=== PATIENT | female | born 1955 | race Caucasian/White ===

== ENCOUNTER 2021-06-24 06:01 | Day surgery (SDC) | payer OTHER ==
[2021-06-20 10:28] LABS: Absolute Lymphocytes (CBC) 1.4 K/uL (0.7-4.9); Basophils % 0.7 % (0-1.3); Hematocrit 41.3 % (36.0-45.0); Lymphocytes % 33.7 % (15.3-44.8); MPV 10.5 fL (7.6-11.3); RBC Red Blood Cell Count 4.84 M/uL (3.86-4.86)
--- NOTE | 2021-06-20 10:35 | RAD REPORT ---
EXAM DESCRIPTION: RAD - Chest Pa And Lat (2 Views) - 06/20/2021 10:17 am CLINICAL HISTORY: Pre Op pending shoulder surgery COMPARISON: None TECHNIQUE: Frontal and lateral views of the chest were obtained. FINDINGS: The lungs are clear. Heart size is normal and central vasculature is within normal limit s. No pleural effusion or pneumothorax seen. No acute bone finding. Right convex lower thoracic sco liotic curvature present. Prior lower cervical fusion changes present with hardware in place. No aort ic abnormality. IMPRESSION: No acute cardiopulmonary process.
[2021-06-20 10:57] LABS: Protime INR 0.95
[2021-06-24] MEDS ORDERED: CEFAZOLIN/NS 1gm 1 GM/50 ML BAG ONE (06:12)
[2021-06-24] MEDS ORDERED: Ringers Lactate 1,000 ML IV ONE ×2 (06:12→08:56)
[2021-06-24] MEDS ORDERED: EPINEPHRINE/PF 1 MG/ML AMP ONE (06:32)
[2021-06-24] MEDS ORDERED: NS 0.9% VIAL 10 ML ONE (06:42)
[2021-06-24] MEDS ORDERED: LIDOCAINE 1% MPF 5 ML VIAL ONE (06:42)
[2021-06-24] MEDS ORDERED: MIDAZOLAM HCL 2 MG/2 ML INJ ONE (06:43)
[2021-06-24] MEDS ORDERED: FENTANYL CITR 100 MCG/2 ML ONE (06:43)
[2021-06-24] MEDS ORDERED: ROPLVACAINE HCL 40 ML ONE (06:43)
[2021-06-24] MEDS ORDERED: dexAMETHasone 10 MG/ML VIAL ONE ×2 (06:43→07:15)
[2021-06-24] MEDS ORDERED: propofoL 200 MG/20 ML VIAL IV ONE (07:15)
[2021-06-24] MEDS ORDERED: KETOROLAC 30 MG/ML INJ ONE (07:15)
[2021-06-24] MEDS ORDERED: ROCURONIUM 50 MG/5 ML VIAL IV ONE (07:16)
[2021-06-24] MEDS ORDERED: LIDOCAINE 2% MPF 5 ML VIAL ONE (07:16)
[2021-06-24] MEDS ORDERED: ONDANSETRON 4 MG/2 ML VIAL ONE (07:16)
[2021-06-24] MEDS ORDERED: EPHEDRINE SULF 50 MG/ML VIAL ONE (07:58)
--- NOTE | 2021-06-24 10:05 | P.BOP ---
Preoperative diagnosis: left shoulder rotator cuff tear, impingement syndrome, biceps tendinitis Postoperative diagnosis: same Primary procedure: left shoulder arthroscopic rotator cuff repair Secondary procedure: left shoulder arthroscopic biceps tenotomy with SLAP debridement Other procedure(s): left shoulder arthroscopic subacromial decompression Estimated blood loss: 5 cc Specimen: none Findings: see dictation Anesthesia: General Complications: None Implants: 1- 5.5 mm Arthrex corkscrew, 2 - 4.75 mm Arthrex Swivelock Fluids & blood products: per anesthesia record Transferred to: Recovery Room Condition: Good
--- NOTE | 2021-06-24 11:06 | RAD REPORT ---
EXAM DESCRIPTION: RAD - Shoulder 1 View - 06/24/2021 10:47 am CLINICAL HISTORY: s/p left RCR Postoperative shoulder COMPARISON: Shoulder Left Wo Cont dated 04/12/2021 FINDINGS: Single projection of the left shoulder submitted postoperatively. Mild AC joint and glenoh umeral joint arthritic changes. No fracture or dislocation seen.
[2021-06-24] MEDS ORDERED: HYDROCODONE/APAP 7.5/325 MG TAB ONE (11:12)
[2021-06-24 11:55] VITALS: BP 130/65; TEMP 97; O2SAT 97
--- NOTE | 2021-06-24 21:41 | OP ---
Date of Procedure: 06/24/2021 Surgeon: Tao Gilmore MD Preoperative Diagnoses: 1. Left shoulder rotator cuff tear. 2. Left shoulder bicipital tenosynovitis. 3. Left shoulder impingement syndrome. Postoperative Diagnoses: 1. Left shoulder rotator cuff tear. 2. Left shoulder bicipital tenosynovitis. 3. Left shoulder impingement syndrome. 4. Left shoulder SLAP tear. Procedure Performed: 1. Left shoulder arthroscopic rotator cuff repair. 2. Left shoulder arthroscopic biceps tenotomy with SLAP tear debridement. 3. Left shoulder arthroscopic subacromial decompression. Anesthesia: General endotracheal. Fluids: As per anesthesia record. Estimated Blood Loss: Less than 5 cc. Complications: None. Implants: 1. one 5.5 mm Arthrex Corkscrew .. 2. Two 4.75 mm Arthrex SwiveLock. Indication For Procedure: Jo Ann is a 65-year-old female who presented to my clinic with MRI findings consistent with left shoulder rotator cuff tear and bicipital tenosynovitis. I discussed with the patient at length risks and benefits associated with operative and nonoperative treatment. She expressed understanding and elected to proceed with operative treatment. Description Of Procedure: After informed consent was obtained, the patient was identified in the preoperative holding area and the left upper extremity was marked. The patient was then brought back to the PACU and underwent an interscalene block to the left upper extremity performed by Anesthesia. The patient was then brought back to the operating room, transferred to the operating table in supine fashion and placed under general endotracheal anesthesia. She was then placed in the beach chair position with her extremities well padded. The left upper extremity was then prepped and draped in usual sterile fashion. A time-out was initiated. The correct patient and procedure were confirmed and identified. The patient did receive her preoperative prophylactic antibiotics. Attention was first paid to the posterior portal. A spinal needle was introduced into glenohumeral joint from the posterior portal position and the shoulder was injected with 30 cc of normal saline to distend the capsule. A stab incision was made posteriorly with an 11 blade to create a posterior portal. The arthroscope was brought in via the posterior portal position into the glenohumeral joint. Under direct visualization the anterior portal and cannula were placed. Next, diagnostic arthroscopy was performed. The patient was noted to have a broad-based biceps tendon anchor with significant tenosynovitis. A meniscal biter was then used to performed biceps tenotomy. The biceps anchor and labrum were then debrided using the Arthrex arthroscopic shaver. There was noted to be significant fraying of the superior labrum consistent with a SLAP tear. This was debrided using the arthroscopic shaver. There was no significant instability or anterior labral tear noted. Subscapularis did have a small tear on the superior portion which was debrided with arthroscopic shaver. The posterior lip was found to be intact. There was no loose bodies noted within the axillary pouch. Next, there was noted to be a full-thickness tear of the anterior edge of the supraspinatus. A lateral portal was created using a spinal needle. The peeler operator was then brought into the glenohumeral joint consistent with a full-thickness tear. Arthroscopic shaver was then brought in via the lateral portal and the undersurface of the rotator cuff tear was debrided using the arthroscopic shaver and the greater tuberosity supraspinatus footprint was debrided using arthroscopic shaver to create a bleeding bony bed. Arthroscope scope was then brought into the subacromial space and subacromial bursectomy was performed. The rotator cuff tear could be reduced to greater tuberosity. A spinal needle was then used to make stab incision just lateral to the acromion for placement of the medial corkscrew anchor. A 5.5 mm corkscrew anchor was then placed just lateral to the articular surface within the greater tuberosity. It was a double loaded anchor, the suture was then passed through the supraspinatus tear in anterior to posterior fashion. They were tied in a horizontal mattress fashion. There was good overall reduction of the rotator cuff tear up to the greater tuberosity. The suture limbs were then placed in a crisscross fashion, and 2 SwiveLock lateral row anchors were placed to increased surface area of the repair site up to the greater tuberosity. The central suture within the SwiveLock was then used to tied to reduced any dog-ears were noted both anteriorly and posteriorly. There was good overall reduction of the rotator cuff tear up to the greater tuberosity. Next, attention was taken to the subacromial decompression. The patient does have a grade 4 acromial ligament and undersurface of the acromion was debrided using the arthroscopic radiofrequency ablator as well as acromioplasty was performed using arthroscopic bur. Arthroscopic instruments were then removed without complication. Wounds were then irrigated thoroughly with normal saline. The skin was approximated using 2-0 Vicryl and further approximated using a 3-0 Monocryl. Sterile dressings were applied. The patient was placed in a shoulder and immobilizer, awakened, transferred to PACU in stable condition. Postoperative Plan: The patient will follow up in 1 week for wound check and began physical therapy for a medium rotator cuff protocol in 1 month. PASCUAL/ANDRA Voice ID: [id number] Report ID: [id number] MTDD
== END 2021-06-24 11:40 | disposition home or self-care (01) ==
LOC: OR 06:01
PROVIDERS: ATTEND Orthopaedic Surgery Sports Medicine
PROC: 0RNK4ZZ Release Left Shoulder Joint, Percutaneous Endoscopic Approach (ICD-10-PCS; 2021-06-24)
PROC: 0RBK4ZZ Excision of Left Shoulder Joint, Percutaneous Endoscopic Approach (ICD-10-PCS; 2021-06-24)
PROC: 0LM24ZZ Reattachment of Left Shoulder Tendon, Percutaneous Endoscopic Approach (ICD-10-PCS; principal; 2021-06-24 07:30)
DX: M25.512 Pain in left shoulder (principal); S46.012A Strain of muscle(s) and tendon(s) of the rotator cuff of left shoulder, initial encounter; M75.22 Bicipital tendinitis, left shoulder; M75.42 Impingement syndrome of left shoulder; Z20.822 Contact with and (suspected) exposure to COVID-19
CPT/HCPCS: 93005; 85025; 80048; 36415; 85610; 85730; 71046; 73020; 29827; 29826; 29822; U0002; J2704; J0171; J2250; J3010; J1100 ×2; J2795; J0690; J7120 ×2; J2405

== ENCOUNTER 2021-11-27 10:50 | Emergency (ER) | payer OTHER ==
--- OUTSIDE RECORDS SUMMARY | 2021-11-27 10:55 | XMS REPORT | Continuity of Care Document ---
:1955 Author Organization [facility] t Address [address] [place] [address] Care Team Providers Name Role Phone Mina Henry MD Primary Care Physician Unavailable Therapy, Covid Infusion Attending Clinician Unavailable Ruben DELGADO, A Attending Clinician Shanti MIRANDA Attending Clinician Unavailable Doctor Unassigned, Name Attending Clinician Unavailable NEVIN Attending Clinician Unavailable Josselin DE LA CRUZ Attending Clinician Unavailable KACI PIERCE Attending Clinician Unavailable KACI PIERCE Admitting Clinician Unavailable Payers Payer Name Policy Type Policy Number Effective Date Expiration Date S ource Problems Condition Condition Condition Status Onset Resolution Last Treating Co mments Source Name Details Category Date Date Treatment Clinician Date Headache, Headache, Disease Active [facility] unspecif[facility]-15 Estela kes - d headache d headache 00:00: Me dical type type 00 Center Cervical Cervical Disease Active [facility] radiculopa radiculopa 7-14 Estela kes - thy thy 00:00: Medical 00 Center Allergies, Adverse Reactions, Alerts Allergy Allergy Status Severity Reaction(s) Onset Inactive Treating Comm ents Source Name Type Date Date Clinician CODEINE DRUG Active High SOB Univers INGREDI 4-10 ity of 00:00: [address] Codeine Propensi Active Shortness Of [facility] ty to Breath 4-10 [facility] - adverse 00:00: Medical reaction 00 Center s NO KNOWN Drug Active Univers ALLERGIE Class [facility] Social History Social Habit Start Date Stop Date Quantity Comments Source Alcohol intake 2017-03-05 2017-03-[address] [facility] [facility] - 00:00:00 00:00:00 non-drinker of Medical Ce nter alcohol (finding) Tobacco use and 2017-02-19 2017-02-[address] [facility] Estela kes - exposure 00:00:00 00:00:00 [facility] Sex Ass[birth year] At [birth year] ADOLFO Ruizs - 00:00:00 00:00:00 [facility] Center Smoking Status Start Date Stop Date Source Unknown if ever smoked [facility] Never smoker [facility] Medications Ordered Filled Start Stop Current Ordering Indication Dosage Frequency Signature Comments Components Source Medication Medication Date Date Medication? Clinician (SIG) Name Name casirivimab 2020- No [id number] 1200mg 1,200 mg, Univers -imdevimab 05-17 Subcutaneo it y of (REGEN-COV 21:00: 19:46 us, ONCE, [place] (EUA)) 00 :00 1 dose, On Medical injection [facility] 1,200 mg 05/17/21 at 1600, Routine azaTHIOprin Yes 50mg Take [address] e (IMURAN) 7-16 by mouth. Luke s - 50 mg 10:56: Medical tablet [address] [place] [address] certolizuma Yes Inject [facility] pegol 400 7-16 subcutaneo Estela kes - mg (200 mg 10:56: usly. Medica l x 2 vials) [address] [place] [address] Kit citalopram Yes 20mg Take [address] (CELEXA) 20 7-16 by mouth. Felicitas es - MG tablet 10:56: Medical Center doxepin Yes 25mg Take [address] (SINEQUAN) 7-16 by mouth. Luke s - 25 MG 10:56: Medical capsule [address] [place] [address] gabapentin Yes 300mg Take [address] (NEURONTIN) 7-16 mg by [facility] - 300 MG 10:56: mouth. Medical capsule [address] [place] [address] hydroxychlo Yes 200mg Take [address] roquine 7-16 mg by [facility] - (PLAQUENIL) 10:56: mouth. Medi waqas 200 mg 47 Center tablet nabumetone 2017 Yes 750mg Take [address] (RELAFEN) 7-16 mg by [facility] - 750 MG 10:56: mouth. Medical tablet 47 Center omeprazole [address] Yes 40mg Take [address] (PRILOSEC) 7-16 by mouth. Luke s - 40 MG 10:56: Medical capsule 47 Center sulfaSALAzi 2017- Yes 500mg Take [address] ne 7-16 mg by [facility] - (AZULFIDINE 10:56: mouth. Medi waqas ) 500 mg 47 Center tablet azaTHIOprin 2017 Yes 50mg Take [address] [facility] (IMURAN) 7-16 by mouth. Luke s - 50 mg 10:56: Medical tablet 47 Center certolizuma Yes Inject [facility] pegol 400 7-16 subcutaneo Estela kes - mg (200 mg 10:56: usly. Medica l x 2 vials) 47 Center Kit citalopram Yes 20mg Take [address] (CELEXA) 20 7-16 by mouth. Felicitas es - MG tablet 10:56: Medical 47 Center doxepin 2017 Yes 25mg Take [address] (SINEQUAN) 7-16 by mouth. Luke s - 25 MG 10:56: Medical capsule 47 Center gabapentin 20170 Yes 300mg Take [address] (NEURONTIN) 7-16 mg by [facility] - 300 MG 10:56: mouth. Medical capsule 47 Center hydroxychlo 2017 Yes 200mg Take [address] roquine 7-16 mg by [facility] - (PLAQUENIL) 10:56: mouth. Medi waqas 200 mg 47 Center tablet nabumetone 20170 Yes 750mg Take [address] (RELAFEN) 7-16 mg by [facility] - 750 MG 10:56: mouth. Medical tablet 47 Center omeprazole 20170 Yes 40mg Take [address] (PRILOSEC) 7-16 by mouth. Luke s - 40 MG 10:56: Medical capsule 47 Center sulfaSALAzi 20170 Yes 500mg Take [address] ne 7-16 mg by [facility] - (AZULFIDINE 10:56: mouth. Medi waqas ) 500 mg 47 Center tablet Immunizations Ordered Filled Immunization Date Status Comments Sourc e Immunization Name Name SARS-COV-2 COVID-19 2020-11-01 Completed Unive rsity of PFIZER VACCINE 00:00:00 [facility] SARS-COV-2 COVID-19 2020-11-01 Completed Unive rsity of PFIZER VACCINE 00:00:00 [facility] SARS-COV-2 COVID-19 2020-10-11 Completed Unive rsity of PFIZER VACCINE 00:00:00 [facility] SARS-COV-2 COVID-19 2020-10-11 Completed Unive rsity of PFIZER VACCINE 00:00:00 [facility] Vital Signs Vital Name Observation Time Observation Value Comments Source Systolic blood 2021-05-17 20:31:00 115 mm[Hg] Univer sity of pressure [facility] Diastolic blood 2021-05-17 20:31:00 50 mm[Hg] Unive rsity of pressure [facility] Heart rate 2021-05-17 20:31:00 82 /min [facility] Body temperature 2021-05-17 20:31:00 36.39 Genie [facility] Respiratory rate 2021-05-17 20:31:00 20 /min [facility] Oxygen saturation in 2021-05-17 20:31:00 95 /min [facility] Arterial blood by [facility] Pulse oximetry [place] Body height 2021-05-17 19:30:00 149.9 cm [facility] Body weight 2021-05-17 19:30:00 74.844 kg [facility] BMI 2021-05-17 19:30:00 33.33 kg/m2 [facility] Procedures Procedure Date / Time Performed Performing Clinician Sour e CONSENT/REFUSAL FOR 2021-05-17 05:01:00 Doctor Unassigned, No Un [facility] DIAGNOSIS AND Name Medical [place] TREATMENT Plan of Care Planned Activity Planned Date Details Comments Source Future Scheduled 2021-04-20 INFLUENZA VACCINE (#1) [facility] Test 00:00:00 [code = INFLUENZA Medical Ce nter VACCINE (#1)] Future Scheduled 2021-04-20 INFLUENZA VACCINE (#1) [facility] Test 00:00:00 [code = INFLUENZA Medical Ce nter VACCINE (#1)] Future Scheduled 2020-08-[address] [facility] - Test 00:00:00 (12+) [code = Medical Center DEPRESSION SCREENING (12+)] Future Scheduled 2020-08-[address] [facility] - Test 00:00:00 (12+) [code = Medical Center DEPRESSION SCREENING (12+)] Future Scheduled 2006 SHINGLES VACCINES ([address] [facility] - Test 00:00:00 of 2) [code = SHINGLES Medic al Center VACCINES (1 of 2)] Future Scheduled 2006 SHINGLES VACCINES ([address] [facility] - Test 00:00:00 of 2) [code = SHINGLES Medic al Center VACCINES (1 of 2)] Future Scheduled [address] - Test 00:00:00 (procedure) [code = [facility] 41001067] Future Scheduled [address] [facility] - Test 00:00:00 (procedure) [code = [facility] 66134013] Future Scheduled [address] [facility] - Test 00:00:00 malignant neoplasm of Medica l Center cervix (procedure) [code = 260724212] Future Scheduled [address] [facility] [facility] - Test 00:00:00 malignant neoplasm of Medica l Center cervix (procedure) [code = 633359427] Future Scheduled 1975 DTAP/TDAP/TD VACCINES [facility] - Test 00:00:00 (1 - Tdap) [code = Medical C enter DTAP/TDAP/TD VACCINES (1 - Tdap)] Future Scheduled 1975 DTAP/TDAP/TD VACCINES [facility] - Test 00:00:00 (1 - Tdap) [code = Medical C enter DTAP/TDAP/TD VACCINES (1 - Tdap)] Future Scheduled 1974 HEPATITIS C SCREENING [facility] - Test 00:00:00 [code = HEPATITIS C Medical Center SCREENING] Future Scheduled 1974 HEPATITIS C [facility]CRE[facility]ING [facility] Test 00:00:00 [code = HEPATITIS C Medical Center SCREENING] Future Scheduled 1968 COVID-19 VACCINE (1) [facility] - Test 00:00:00 [code = COVID-[address] VACCINE (1)] Future Scheduled 1968 COVID-19 VACCINE (1) [facility] - Test 00:00:00 [code = COVID-[address] VACCINE (1)] Future Scheduled [address] [facility] - Test 00:00:00 0-64 YRS (1 of 4 - Medical C enter PCV13) [code = PNEUMOCOCCAL VACCINE 0-64 YRS (1 of 4 - PCV13)] Future Scheduled [address] [facility] - Test 00:00:00 0-64 YRS (1 of 4 - Medical C enter PCV13) [code = PNEUMOCOCCAL VACCINE 0-64 YRS (1 of 4 - PCV13)] Future Scheduled [address] [facility] - Test 00:00:00 malignant neoplasm of Medica l Center colon (procedure) [code = 827763459] Future Scheduled [address] [facility] - Test 00:00:00 malignant neoplasm of Medica l Center breast (procedure) [code = 039142452] Future Scheduled [address] [facility] - Test 00:00:00 malignant neoplasm of Medica l Center colon (procedure) [code = 655810344] Future Scheduled [address] [facility] - Test 00:00:00 malignant neoplasm of Medica l Center breast (procedure) [code = 671020517] Encounters Start End Encounter Admission Attending Care Care Encounter Source Date/Time Date/Time Type Type Clinicians Facility Department ID 2021-05-17 2021-05-17 Nurse Therapy, Adc Covid Infusion [facility] [id number] Univers 14:20:14 15:20:14 Visit Dino Miranda [id number] [place] [id number] [facility] s Surgical [phone] [place] [id number] Branch 2021-05-17 2021-05-17 Outpatient R RUBEN [facility] [id number] Univers 14:30:00 14:30:00 DINO parker [facility] 2021-05-17 2021-05-17 Orders Doctor RUDY [id number] Univers 00:00:00 00:00:00 Only Unassigned, CHRISTINA [id number] ity of [place] [facility] [id number] Zach as [id number] [address] 2021-05-11 2021-05-11 Outpatient R NEVIN [facility] [id number] Univers 18:15:00 18:15:00 CHETAN parker o f [facility] Results Test Description Test Time Test Comments Results Result [facility] e Comments MR, SPINE, 2019-06-20 FINAL REPORT PATIENT ID: LUMBAR, WITHOUT 2 [id number] EXAMINATION: MRI IV CONTRAST 14:56:00 of the lumbar spine without contrast HISTORY: Low back pain radiating along the back of the right lower extremity for more than six months.COMPARISON: None.TECHNIQUE: Sagittal T1, T2, STIR; axial T2 and proton density. FINDINGS: It is assumed that there are 5 lumbar vertebrae. Curvature/Alignment: Normal lordosis. Subtle left-sided curvature. Vertebrae: No evidence of recent fracture, infection, or neoplasm. Small benign hemangioma in the T12 and L2 vertebral bodies. Conus: Normal, terminating at L1 Cauda equina: Unremarkable. Lower thoracic: Unremarkable. Paraspinal soft tissues: Unremarkable. Degenerative changes: L1-L2: Mild decreased disc height and T2 signal intensity, minimal symmetric disc bulge. No canal or foraminal stenoses. L2-L3: Minimal decreased disc height and T2 signal intensity as well as symmetric disc bulge, no canal or foraminal stenoses. L3-L4: Minimal symmetric disc bulge and facet arthroses without canal or foraminal stenoses. L4-L5: Mild symmetric disc bulge with a small left posterolateral annular fissure, mild facet arthroses. No significant canal or foraminal stenoses. L5-S1: Mild facet arthroses without canal or foraminal stenoses Sacroiliac joints:Unremarkable. IMPRESSION: Mild degenerative changes mainly at L4-L5 and L5-S1 without spinal canal or foraminal stenoses. Particularly there is no evidence of nerve root compression. Signed: Kalli Eubanks MDReport Verified Date/Time: 07/01/2019 14:56:05 Reading Location: [facility] Reading Room [address] [place] [address] , SPINE, 2018-12-18 Reason for FINAL REPORT PATIENT ID: CERVICAL, 2 OR 3 3 Exam:->S/P [id number] Radiographs of VIEWS 14:20:00 Cervical the cervical spine - three spinal fusion views HISTORY: PainCOMPARISON: None available. FINDINGS:Bones:No acute displaced fracture. Osseous alignment is within normal limits. Joints:Patient status post anterior fusion at C5/6 with intervertebral body spacer material. The surgical hardware is intact without evidence of failure or loosening. Scattered degenerative change. Soft tissues:The soft tissues appear unremarkable. IMPRESSION: Patient status post anterior fusion at C5/6 with intervertebral body spacer material. The surgical hardware is intact without evidence of failure or loosening. Signed: Tiffany Sy MDReport Verified Date/Time: 12/30/2018 14:20:51 UE EXAM 2017-02-18 Surgical Pathology Report 1 16:17:00 Case: [id number] Authorizing Provider: Eliseo Pierce MD Collected: 03/02/2017 0845 Ordering Location: [facility] Received: 03/02/2017 1006 SERVICES Pathologist: Jose E Negrete MD Specimen: Intervertebral Disc, C5-C6 VERTEBRAL COLUMN, INTERVERTEBRAL DISC, C5-6, DISCECTOMY:FRAGMENTS OF FIBROCARTILAGE WITH MILD DEGENERATIVE CHANGES 76812; 30920Suuonjjy radiculopathyIntervertebra l disc, C5-6The specimen is received in a fluidless container labeled with patient information labeled "C5-6" and consists of meyer-pink fibrocartilaginous tissue measuring 1.3 x 0.6 x 0.3 cm in aggregate. Submitted entirely A1 for decalcification. CG/pl Performed BASIC METABOLIC PANEL 2017-03-04 05:27:00 Test Item Value Reference Range Interpretation Comme nts SODIUM (BEAKER) (test code 141 meq/L 136-145 = 381) POTASSIUM (BEAKER) (test 4.2 meq/L 3.5-5.1 code = 379) CHLORIDE (BEAKER) (test 107 meq/L 98-107 code = 382) CO2 (BEAKER) (test code = 24 meq/L 22-29 355) BLOOD UREA NITROGEN 9 mg/dL 7-21 (BEAKER) (test code = 354) CREATININE (BEAKER) (test 0.68 mg/dL 0.57-1.25 code = 358) GLUCOSE RANDOM (BEAKER) 117 mg/dL 70-105 H (test code = 652) CALCIUM (BEAKER) (test code 9.1 mg/dL 8.4-10.2 = 697) EGFR (BEAKER) (test code = 88 mL/min/1.73 sq m ESTIMATED GFR IS NOT 1092) ACCURATE CRE ATININE CLEARANCE IN MS EDICTING GLOMERULAR FILT RATION RATE. ESTIMATED GFR IS NOT APPLICABLE FOR DIALYSIS PATIENTS. POD 1CBC (HEMOGRAM ONLY)2017-03-04 05:07:00 Test Item Value Reference Range Interpretation Comments WHITE BLOOD CELL COUNT (BEAKER) 7.2 K/ L 4.0-10.0 (test code = 775) RED BLOOD CELL COUNT (BEAKER) 4.24 M/ L 4.00-5.00 (test code = 761) HEMOGLOBIN (BEAKER) (test code = 12.8 GM/DL 12.0-15.0 410) HEMATOCRIT (BEAKER) (test code = 39.3 % 36.0-45.0 411) MEAN CORPUSCULAR VOLUME (BEAKER) 92.8 fL 82.0-99.0 (test code = 753) MEAN CORPUSCULAR HEMOGLOBIN 30.3 pg 27.0-33.0 (BEAKER) (test code = 751) MEAN CORPUSCULAR HEMOGLOBIN CONC 32.6 GM/DL 32.0-36.0 (BEAKER) (test code = 752) RED CELL DISTRIBUTION WIDTH 12.3 % 10.3-14.2 (BEAKER) (test code = 412) PLATELET COUNT (BEAKER) (test 145 K/CU MM 150-430 L code = 756) MEAN PLATELET VOLUME (BEAKER) 9.7 fL 6.5-10.5 (test code = 754) NUCLEATED RED BLOOD CELLS 0 /100 WBC 0-0 (BEAKER) (test code = 413) 0.00BASIC METABOLIC [id number] 05:24:00 Test Item Value Reference Range Interpretation Comments SODIUM (BEAKER) 141 meq/L 136-145 (test code = 381) POTASSIUM (BEAKER) 4.2 meq/L 3.5-5.1 (test code = 379) CHLORIDE (BEAKER) 105 meq/L 98-107 (test code = 382) CO2 (BEAKER) (test 25 meq/L 22-29 code = 355) BLOOD UREA NITROGEN 9 mg/dL 7-21 (BEAKER) (test code = 354) CREATININE (BEAKER) 0.67 mg/dL 0.57-1.25 (test code = 358) GLUCOSE RANDOM 126 mg/dL 70-105 H (BEAKER) (test code = 652) CALCIUM (BEAKER) 9.5 mg/dL 8.4-10.2 (test code = 697) EGFR (BEAKER) (test 90 mL/min/1.73 ESTIMA KINGSLEY GFR IS code = 1092) sq m NOT ACCURATE CREATININE CLEARANCE IN PREDICTING GLOMERULAR FILTRATION RATE . ESTIMATED GFR I S NOT APPLICABLE FOR DIALYSIS PATIEN TS. CBC W/PLT COUNT & AUTO [id number] 03:56:00 Test Item Value Reference Range Interpretation Comments WHITE BLOOD CELL COUNT (BEAKER) 8.8 K/ L 4.0-10.0 (test code = 775) RED BLOOD CELL COUNT (BEAKER) 4.34 M/ L 4.00-5.00 (test code = 761) HEMOGLOBIN (BEAKER) (test code = 13.1 GM/DL 12.0-15.0 410) HEMATOCRIT (BEAKER) (test code = 39.9 % 36.0-45.0 411) MEAN CORPUSCULAR VOLUME (BEAKER) 91.9 fL 82.0-99.0 (test code = 753) MEAN CORPUSCULAR HEMOGLOBIN 30.2 pg 27.0-33.0 (BEAKER) (test code = 751) MEAN CORPUSCULAR HEMOGLOBIN CONC 32.9 GM/DL 32.0-36.0 (BEAKER) (test code = 752) RED CELL DISTRIBUTION WIDTH 12.3 % 10.3-14.2 (BEAKER) (test code = 412) PLATELET COUNT (BEAKER) (test 143 K/CU MM 150-430 L code = 756) MEAN PLATELET VOLUME (BEAKER) 9.9 fL 6.5-10.5 (test code = 754) NUCLEATED RED BLOOD CELLS 0 /100 WBC 0-0 (BEAKER) (test code = 413) NEUTROPHILS RELATIVE PERCENT 78 % (BEAKER) (test code = 429) LYMPHOCYTES RELATIVE PERCENT 13 % (BEAKER) (test code = 430) MONOCYTES RELATIVE PERCENT 9 % (BEAKER) (test code = 431) EOSINOPHILS RELATIVE PERCENT 0 % (BEAKER) (test code = 432) BASOPHILS RELATIVE PERCENT 0 % (BEAKER) (test code = 437) NEUTROPHILS ABSOLUTE COUNT 6.91 K/ L 1.80-8.00 (BEAKER) (test code = 670) LYMPHOCYTES ABSOLUTE COUNT 1.12 K/ L 1.48-4.50 L (BEAKER) (test code = 414) MONOCYTES ABSOLUTE COUNT (BEAKER) 0.76 K/ L 0.00-1.30 (test code = 415) EOSINOPHILS ABSOLUTE COUNT 0.03 K/ L 0.00-0.50 (BEAKER) (test code = 416) BASOPHILS ABSOLUTE COUNT (BEAKER) 0.01 K/ L 0.00-0.20 (test code = 417) 0.00
[2021-11-27] MEDS ORDERED: HYDROCODONE/APAP 10/325 TAB ONE (11:08)
[2021-11-27] MEDS ORDERED: ONDANSETRON 4 MG (ODT) TAB ONE (11:09)
[2021-11-27] MEDS ORDERED: KETOROLAC 30 MG/ML INJ ONE (11:09)
--- NOTE | 2021-11-27 11:28 | ER ---
Nurse's Notes [facility] Name: Jo Ann Richter Age: 66 yrs Sex: Female : 1955 Arrival Date: 11/27/2021 Time: 10:54 Bed 4 Private MD: Diagnosis: Displaced fracture of greater tuberosity of left humerus, subsequent encounter for fracture with routine healing;Fall on same level, unspecified Presentation: 11/27 11:01 Chief complaint: Patient states: Trip this morning. L shoulder pain since, slight ll1 bruise L knee. No LOC or head injury. Coronavirus screen: Vaccine status: Patient reports receiving the 2nd dose of the covid vaccine. Client denies travel out of the [place] in the last 14 days. At this time, the client does not indicate any symptoms associated with coronavirus-19. Ebola Screen: Patient denies travel to an Ebola-affected area in the 21 days before illness onset. Initial Sepsis Screen: Does the patient meet any 2 criteria? No. Patient's initial sepsis screen is negative. Does the patient have a suspected source of infection? No. Patient's initial sepsis screen is negative. Risk Assessment: Do you want to hurt yourself or someone else? Patient reports no desire to harm self or others. Onset of symptoms was November 27, 2021. 11:01 Method Of Arrival: Ambulatory [facility] 11:01 Acuity: TIA 3 ll1 Triage Assessment: 11:02 General: Appears uncomfortable, Behavior is cooperative, appropriate for age. Pain: ll1 Complains of pain in posterior aspect of left shoulder Quality of pain is described as aching. Musculoskeletal: Circulation, motion, and sensation intact. Capillary refill < 3 seconds, Reports pain in anterior aspect of left shoulder. Historical: - Allergies: 11:00 Codeine; ll1 - PSHx: 11:00 rotator cuff repair; ll1 - Immunization history:: Client reports receiving the 2nd dose of the Covid vaccine. - Social history:: Smoking status: Patient denies any tobacco usage or history of. Screenin:14 Abuse screen: Denies threats or abuse. Denies injuries from another. Nutritional ph screening: No deficits noted. Tuberculosis screening: No symptoms or risk factors identified. Fall Risk Fall in past 12 months (25 points). No secondary diagnosis (0 pts). No IV (0 pts). Ambulatory Aid- None/Bed Rest/Nurse Assist (0 pts). Gait- Normal/Bed Rest/Wheelchair (0 pts) Mental Status- Oriented to own ability (0 pts). Total Ng Fall Scale indicates Low Risk Score (25-44 pts). Assessment: 11:13 General: Appears in no apparent distress. comfortable, Behavior is calm, cooperative. vg1 Pain: Complains of pain in Left Shoulder and Left knee Pain currently is 10 out of 10 on a pain scale. Pain began 30 min ago. Neuro: Level of Consciousness is awake, alert, obeys commands, Oriented to person, place, time, situation. Cardiovascular: Patient's skin is warm and dry. Respiratory: Airway is patent Respiratory effort is even, unlabored. GI: No signs and/or symptoms were reported involving the gastrointestinal system. : No signs and/or symptoms were reported regarding the genitourinary system. EENT: No signs and/or symptoms were reported regarding the EENT system. Derm: Skin is intact, is healthy with good turgor, Bruising that is on Left knee blue. Musculoskeletal: Circulation, motion, and sensation intact. Range of motion: limited in Left shoulder. 11:13 Injury Description: pt states tripped and fell onto Left shoulder; denies hitting head vg1 or LOC; states Left knee pain. Vital Signs: 11:01 BP 167 / 119; Pulse 72; Resp 17; Temp 98.6; Pulse Ox 100% ; Weight 70.31 kg; Height 5 ll1 ft. 0 in. (152.40 cm); Pain 10/10; 11:36 BP 145 / 80; Pulse 70; Resp 16; Pulse Ox 98% on R/A; vg1 11:01 Body Mass Index 30.27 (70.31 kg, 152.40 cm) ll1 ED Course: 10:54 Patient arrived in ED. rg4 10:56 Rios Paz MD is Attending Physician. papi 10:57 Tameka Henry, RN is Primary Nurse. vg1 11:00 Arm band placed on Patient placed in an exam room, on a stretcher. ll1 11:02 Triage completed. ll1 11:14 Patient has correct armband on for positive identification. Bed in low position. Call ph light in reach. Side rails up X 1. Pulse ox on. NIBP on. Door closed. Noise minimized. Warm blanket given. Ice pack to injury. 11:20 Shoulder Left (2 View) XRAY In Process Unspecified. EDMS 11:25 Ramses Mejia MD is Referral Physician. [facility] 12:34 No provider procedures requiring assistance completed. Patient did not have IV access vg1 during this emergency room visit. Administered Medications: 11:13 Drug: [facility] (HYDROcodone-acetaminophen) 10 mg-325 mg 1 tabs Route: PO; ph 12:34 Follow up: Response: No adverse reaction vg1 11:13 Drug: Zofran (Ondansetron) 4 mg Route: PO; ph 12:34 Follow up: Response: No adverse reaction vg1 11:13 Drug: Ketorolac 60 mg Route: IM; Site: right deltoid; ph 12:34 Follow up: Response: No adverse reaction vg1 Outcome: 11:28 Discharge ordered by . [facility] 12:34 Discharged to home ambulatory, with family. vg1 12:34 Condition: good 12:34 Discharge instructions given to patient, Instructed on discharge instructions, follow up and referral plans. medication usage, Demonstrated understanding of instructions, follow-up care, medications, Prescriptions given X 2. 12:40 Patient left the ED. vg1 Signatures: Dispatcher [employer] EDMS Rios Paz MD MD cha Hall, Patricia, RN RN Tegan Henry rg4 Tameka Henry RN RN vg1 Mirlande Vazquez RN RN ll1 Corrections: (The following items were deleted from the chart) 11:19 11:13 General: Appears in no apparent distress. comfortable, Behavior is calm, vg1 cooperative, vg1
--- NOTE | 2021-11-27 11:29 | EDPHYS ---
Physician Documentation [facility] Name: Jo Ann Richter Age: 66 yrs Sex: Female : 1955 Arrival Date: 11/27/2021 Time: 10:54 Bed 4 Private MD: ED Physician Rios Paz HPI: 11/27 11:00 This 66 yrs old Female presents to ER via Unassigned with complaints of Fall papi Injury, Shoulder Pain. 11:00 Details of fall: The patient fell from an upright position, while walking. Onset: The papi symptoms/episode began/occurred 2 day(s) ago. Associated injuries: The patient sustained anterior aspect of left shoulder and posterior aspect of left shoulder, decreased range of motion, painful injury, swelling. Severity of symptoms: At their worst the symptoms were mild, in the emergency department the symptoms are unchanged. The patient has not experienced similar symptoms in the past. Historical: - Allergies: 11:00 Codeine; ll1 - PSHx: 11:00 rotator cuff repair; ll1 - Immunization history:: Client reports receiving the 2nd dose of the Covid vaccine. - Social history:: Smoking status: Patient denies any tobacco usage or history of. ROS: 11:02 Constitutional: Negative for fever, chills, and weight loss, Eyes: Negative for injury, papi pain, redness, and discharge, ENT: Negative for injury, pain, and discharge, Neck: Negative for injury, pain, and swelling, Cardiovascular: Negative for chest pain, palpitations, and edema, Respiratory: Negative for shortness of breath, cough, wheezing, and pleuritic chest pain, Abdomen/GI: Negative for abdominal pain, nausea, vomiting, diarrhea, and constipation, Back: Negative for injury and pain, : Negative for injury, bleeding, discharge, and swelling, Skin: Negative for injury, rash, and discoloration, Neuro: Negative for headache, weakness, numbness, tingling, and seizure, Psych: Negative for depression, anxiety, suicide ideation, homicidal ideation, and hallucinations, Allergy/Immunology: Negative for hives, rash, and allergies, Endocrine: Negative for neck swelling, polydipsia, polyuria, polyphagia, and marked weight changes, Hematologic/Lymphatic: Negative for swollen nodes, abnormal bleeding, and unusual bruising. 11:02 MS/extremity: Positive for decreased range of motion, pain, swelling, tenderness, of the anterior aspect of left shoulder and posterior aspect of left shoulder. Exam: 11:02 Constitutional: This is a well developed, well nourished patient who is awake, alert, papi and in no acute distress. Head/Face: Normocephalic, atraumatic. Eyes: Pupils equal round and reactive to light, extra-ocular motions intact. Lids and lashes normal. Conjunctiva and sclera are non-icteric and not injected. Cornea within normal limits. Periorbital areas with no swelling, redness, or edema. ENT: Nares patent. No nasal discharge, no septal abnormalities noted. Tympanic membranes are normal and external auditory canals are clear. Oropharynx with no redness, swelling, or masses, exudates, or evidence of obstruction, uvula midline. Mucous membranes moist. Neck: Trachea midline, no thyromegaly or masses palpated, and no cervical lymphadenopathy. Supple, full range of motion without nuchal rigidity, or vertebral point tenderness. No Meningismus. Chest/axilla: Normal chest wall appearance and motion. Nontender with no deformity. No lesions are appreciated. Cardiovascular: Regular rate and rhythm with a normal S1 and S2. No gallops, murmurs, or rubs. Normal PMI, no JVD. No pulse deficits. Respiratory: Lungs have equal breath sounds bilaterally, clear to auscultation and percussion. No rales, rhonchi or wheezes noted. No increased work of breathing, no retractions or nasal flaring. Abdomen/GI: Soft, non-tender, with normal bowel sounds. No distension or tympany. No guarding or rebound. No evidence of tenderness throughout. Back: No spinal tenderness. No costovertebral tenderness. Full range of motion. Female : Normal external genitalia. Skin: Warm, dry with normal turgor. Normal color with no rashes, no lesions, and no evidence of cellulitis. Neuro: Awake and alert, GCS 15, oriented to person, place, time, and situation. Cranial nerves II-XII grossly intact. Motor strength 5/5 in all extremities. Sensory grossly intact. Cerebellar exam normal. Normal gait. Psych: Awake, alert, with orientation to person, place and time. Behavior, mood, and affect are within normal limits. 11:02 Musculoskeletal/extremity: ROM: limited active range of motion due to pain, limited passive range of motion due to pain, Circulation is intact in all extremities. Sensation intact. Compartment Syndrome exam of affected extremity: is normal. Weight bearing: able to fully bear weight, no instability or obvious trauma to the left knee, DVT Exam: negative Homans' sign noted on exam, no appreciated bluish discoloration, no erythema, no increased warmth, pain, swelling, tenderness. Vital Signs: 11:01 BP 167 / 119; Pulse 72; Resp 17; Temp 98.6; Pulse Ox 100% ; Weight 70.31 kg; Height 5 ll1 ft. 0 in. (152.40 cm); Pain 10; 11:36 BP 145 / 80; Pulse 70; Resp 16; Pulse Ox 98% on R/A; vg1 11:01 Body Mass Index 30.27 (70.31 kg, 152.40 cm) ll1 MDM: 10:56 Patient medically screened. papi 11:05 Differential diagnosis: Anterior dislocation with fracture, Anterior dislocation papi without fracture, Posterior dislocation with fracture, Posterior dislocation without fracture, humeral head fracture, glenoid fracture, DJD, tendonitis. Differential diagnosis: sprain, strain. Data reviewed: vital signs, nurses notes, radiologic studies, plain films. Data interpreted: front desk monitor: rate is 72 beats/min, rhythm is regular, Pulse oximetry: on room air is 100 %. Test interpretation: by ED physician or midlevel provider: plain radiologic studies. Counseling: I had a detailed discussion with the patient and/or guardian regarding: the historical points, exam findings, and any diagnostic results supporting the discharge/admit diagnosis, lab results, radiology results, the need for outpatient follow up, for definitive care, a family practitioner, a orthopedic surgeon. 11/27 10:59 Order name: Shoulder Left (2 View) XRAY [facility] 11/27 10:59 Order name: Ice pack; Complete Time: 11:07 papi 11/27 11:24 Order name: Shoulder Immobilizer; Complete Time: 11:46 [facility] Administered Medications: 11:13 Drug: Sandy (HYDROcodone-acetaminophen) 10 mg-325 mg 1 tabs Route: PO; ph 12:34 Follow up: Response: No adverse reaction vg1 11:13 Drug: Zofran (Ondansetron) 4 mg Route: PO; ph 12:34 Follow up: Response: No adverse reaction vg1 11:13 Drug: Ketorolac 60 mg Route: IM; Site: right deltoid; ph 12:34 Follow up: Response: No adverse reaction vg1 Disposition Summary: 11/27/21 11:28 Discharge Ordered Location: Home [facility] Problem: new papi Symptoms: have improved papi Condition: Stable papi Diagnosis - Displaced fracture of greater tuberosity of left humerus, subsequent encounter for papi fracture with routine healing - Fall on same level, unspecified papi Followup: papi - With: Private Physician - When: 2 - 3 days - Reason: Recheck today's complaints, Continuance of care, Re-evaluation by your physician Followup: papi - With: Ramses Mejia MD - When: 1 - 2 days - Reason: Recheck today's complaints, Re-evaluation by your physician Discharge Instructions: - Discharge Summary Sheet [facility] - Fall Prevention in the Home, Adult papi - Humerus Fracture Treated With Immobilization papi - Humerus Fracture Treated With Immobilization, [id number] papi - Fall Prevention in the Home, Adult, [id number] [facility] Forms: - Medication Reconciliation Form [facility] - Thank You Letter papi - Antibiotic Education [facility] - Prescription Opioid Use [facility] Prescriptions: - Zofran 4 mg Oral Tablet - take 1 tablet by ORAL route every 12 hours As needed; 20 tablet; Refills: 0, [facility] Product Selection Permitted - Tylenol-Codeine #3 300 mg-30 mg Oral - take 2 tablet by ORAL route every 6 hours; 26 tablet; Refills: 0, Product [facility] Selection Permitted Signatures: Dispatcher [employer] Rios Zhao MD MD cha Hall, Patricia RN Mirlande Montoya ph, RN RN 1 Tameka Henry RN vg1
--- NOTE | 2021-11-27 11:41 | RAD REPORT ---
EXAM DESCRIPTION: RAD - Shoulder Left 2 View - 11/27/2021 11:19 am CLINICAL HISTORY: PAIN COMPARISON: No comparisons FINDINGS/IMPRESSION: Multipart fracture of the left proximal humerus. The fracture involves the surg ical neck and greater tuberosity. No dislocation. ACDF changes in the cervical spine.
[2021-11-27 12:47] VITALS: TEMP 98.6
[2021-11-27 12:48] VITALS: BP 145/80; O2SAT 98
== END 2021-11-27 12:40 | disposition home or self-care (01) ==
LOC: ER 10:50
DX: S42.252A Displaced fracture of greater tuberosity of left humerus, initial encounter for closed fracture (principal); W18.30XA Fall on same level, unspecified, initial encounter; Y93.01 Activity, walking, marching and hiking; Z88.5 Allergy status to narcotic agent
CPT/HCPCS: 96372; 99284